=== PATIENT | male | born 1945 | race Caucasian/White ===

== ENCOUNTER → 2017-08-06 | Outpatient (CLI) | payer MEDICARE, OTHER ==
[~2017-08-06] MED LIST: BYSTOLIC10 MG PO; COLACE PO; FLOMAX0.4 M1 PO; LOVENOX40 MG/0.4 INJ; MACROBID100 MG PO; PERCOCET 5/321 UDTAB PO
--- NOTE | ~2017-08-06 | CT137 ---
[facility]. [facility] A Service of [facility] RADIOLOGY TEXT RESULTS PATIENT: ALPESH MCGILL LOCATION: [facility] : 41 UNIT #: [id number] AGE: [address]: Goran Vanegas MD SEX: M ORDER DR: [id number] [place] [id number] O MR#: [id number] Acc #: [id number] NAME: ALPESH MCGILL : 1945 SEX: M STUDY DATE/TIME: 08/06/2017 13:25 UNIT: [facility] ROOM: STUDY DESCRIPTION: CT Lung Screening annual Attending Physician: Goran Vanegas M.D. Referring Physician: Goran Vanegas M.D. Ordering Physician: Goran Vanegas M.D. Primary Care Physician: Goran Vanegas M.D. MEDICAL IMAGING REPORT This report is preliminary unless electronic signature is present. EXAM CT chest. INDICATIONS Lung cancer screening. 72-year-old male is a former smoker with a 30 pack/year history smoking. 11-year smoking cessation. TECHNIQUE CT of the thorax without contrast. Coronal and sagittal reconstructions were obtained. The exam was performed as a low-dose chest CT utilizing lung cancer screening protocol. This CT exam was performed with one or more of the following radiation dose reduction techniques: automatic exposure control, adjustment of mA and/or kV according to patient size, and iterative reconstruction. CTDI volume 2.96 mGy. DLP 121 mGy-cm. COMPARISON CT lung cancer screening dated 06/21/2016. FINDINGS This is a benign lung cancer screening. The 6 mm pulmonary nodule in the right lower lobe (image 93) is unchanged from 06/21/2016. There is moderate emphysema. Central airways are patent. No pathologically enlarged mediastinal or hilar lymph nodes. There is no pericardial or pleural effusion. There is a small adrenal adenoma on the left adrenal gland. No acute osseous abnormalities. IMPRESSION 1. Benign lung cancer screening. Small pulmonary nodule in the right [facility] A Service of [facility] RADIOLOGY TEXT RESULTS PATIENT: ALPESH MCGILL [facility]: [id number] : 41 UNIT #: [id number] AGE: [address]: Goran Vanegas MD SEX: M ORDER DR: lower lobe is unchanged from the prior study. 2. Emphysema. ACR Lung-RADS classification 2: Benign examination. RECOMMENDATIONS Annual lung cancer screening with a low-dose chest CT. Dictated by... Dutch Williamson M.D. THIS IS AN ELECTRONICALLY VERIFIED REPORT Dutch Williamson M.D. at 08/07/2017 4:54 PM RUTH/armando TD: 08/07/2017 09:36 JOB #: [id number] MEDICAL IMAGING REPORT Page 1 of 1
== END | disposition home or self-care (01) ==
LOC: SCT 13:28
DX: Z87.891 Personal history of nicotine dependence (principal)
CPT/HCPCS: G0297